=== PATIENT | male | born 1995 | race African-American/Black ===

== ENCOUNTER 2022-01-18 23:22 | Emergency (ER) | payer MEDICAID, OTHER ==
[~2022-01-18] VITALS: Ht 193 cm; Wt 136.0 kg
[2022-01-18] MEDS ORDERED: ZIPRASIDONE MESYLATE 20MG/VIAL IM STA (23:38)
[2022-01-18] MEDS ORDERED: TETANUS, DIPHTHERIA, PERTUSSIS VAC/PF 0.5ML (>10YR OLD) IM ONE (23:45)
[2022-01-18 23:59] LABS: BASOPHILS % 0.7 % (0.0-2.0); EOSINOPHILS % 0.3 % (0.0-5.0); HEMATOCRIT. 44.2 % (42.0-52.0); HEMOGLOBIN. 14.6 g/dL (14.0-18.0); LYMPHOCYTES % 17.6 % (20.0-50.0); MEAN CORPUSCULAR HEMOGLOBIN 27.3 pg (28.0-32.0); MEAN CORPUSCULAR VOLUME 82.8 fL (80.0-94.0); MEAN PLATELET VOLUME 7.6 fl (7.4-10.4); MONOCYTES % 12.7 % (2.0-8.0); NEUTROPHILS % 68.7 % (40.0-76.0); PLATELET 292 x1000/uL (130-400); RED BLOOD CELL COUNT 5.33 mill/uL (4.7-6.1); RED CELL DISTRIBUTION WIDTH 14.4 % (11.6-14.6)
[2022-01-19 00:05] LABS: CHLORIDE 101 mEq/L (98-107)
[2022-01-19 00:22] LABS: ETHANOL BLOOD < 10 mg/dL
[2022-01-19 00:52] LABS: *AMPHETAMINES SCREEN URINE PRESUMTIVE POSITIVE (NEGATIVE); *BARBITURATES SCREEN URINE NEGATIVE (NEGATIVE); *BENZODIAZEPINES SCREEN URINE NEGATIVE (NEGATIVE); *COCAINE SCREEN URINE NEGATIVE (NEGATIVE); CANNABINOID URINE SCREEN PRESUMTIVE POSITIVE (NEGATIVE); METHADONE URINE SCREEN NEGATIVE (NEGATIVE); OPIATES URINE SCREEN NEGATIVE (NEGATIVE); PHENCYCLIDINE URINE SCREEN NEGATIVE (NEGATIVE)
[2022-01-19] MEDS ORDERED: FLUOXETINE HCL 20MG CAPSULE PO NR (10:15)
[2022-01-19] MEDS ORDERED: ZIPRASIDONE MESYLATE 20MG/VIAL IM NR (10:30)
[2022-01-19] MEDS: OLANZAPINE 5MG TABLET PO SCH (16:08)
[2022-01-20] MEDS: OLANZAPINE 5MG TABLET PO SCH ×2 (09:00→17:00)
[2022-01-21] MEDS: OLANZAPINE 5MG TABLET PO SCH ×2 (09:18→21:10)
[2022-01-22] MEDS: OLANZAPINE 5MG TABLET PO SCH ×2 (19:30→20:57)
[2022-01-23] MEDS: OLANZAPINE 5MG TABLET PO SCH (09:19)
[2022-01-23 11:46] VITALS: BP 120/73
== END 2022-01-23 11:37 ==
LOC: ER 23:22
DX: S60.812A Abrasion of left wrist, initial encounter (principal); Z20.822 Contact with and (suspected) exposure to COVID-19; R45.851 Suicidal ideations; W26.8XXA Contact with other sharp object(s), not elsewhere classified, initial encounter; Y93.89 Activity, other specified; Y92.89 Other specified places as the place of occurrence of the external cause; Y99.8 Other external cause status
CPT/HCPCS: 36415; 80053; 80305; 80307; 80320; 80329; 84443; 85025; 87426; 99285; C9803; J3486; U0003; U0005; G0480

== ENCOUNTER 2022-04-16 22:23 | Emergency (ER) | payer MEDICAID ==
[~2022-04-16] VITALS: Ht 182.9 cm; Wt 91.0 kg
[2022-04-17 00:37] LABS: EOSINOPHILS % 7.2 % (0.0-5.0); HEMATOCRIT. 41.3 % (42.0-52.0); HEMOGLOBIN. 13.5 g/dL (14.0-18.0); LYMPHOCYTES % 35.9 % (20.0-50.0); MEAN CORPUSCULAR HEMOGLOBIN 27.5 pg (28.0-32.0); MEAN CORPUSCULAR VOLUME 83.9 fL (80.0-94.0); MEAN PLATELET VOLUME 8.2 fl (7.4-10.4); MONOCYTES % 14.6 % (2.0-8.0); NEUTROPHILS % 41.3 % (40.0-76.0); PLATELET 319 x1000/uL (130-400); RED BLOOD CELL COUNT 4.92 mill/uL (4.7-6.1); RED CELL DISTRIBUTION WIDTH 14.7 % (11.6-14.6)
[2022-04-17 00:48] LABS: CHLORIDE 101 mEq/L (98-107)
[2022-04-17 01:09] LABS: ETHANOL BLOOD < 10 mg/dL
[2022-04-17 01:29] LABS: PROTHROMBIN TIME 10.9 sec (9.6-11.0)
[2022-04-17 06:12] VITALS: BP 108/64
== END 2022-04-17 06:25 | disposition home or self-care (01) ==
LOC: ER 22:23
DX: T50.901A Poisoning by unspecified drugs, medicaments and biological substances, accidental (unintentional), initial encounter (principal); G92.8 Other toxic encephalopathy; F20.9 Schizophrenia, unspecified; Y92.488 Other paved roadways as the place of occurrence of the external cause
CPT/HCPCS: 36415; 71045; 80053; 80307; 80320; 80329; 84443; 85025; 93005; 99285; G0480